=== PATIENT | female | born 1985 | race Two or more races ===

== ENCOUNTER 2016-10-07 16:04 | Emergency (ER) | payer MEDICAID ==
[~2016-10-07] VITALS: Ht 157.5 cm; Wt 68.9 kg
[2016-10-07 16:09] VITALS: BP 111/72
== END 2016-10-07 17:15 | disposition home or self-care (01) ==
LOC: ER 16:06
DX: H66.92 Otitis media, unspecified, left ear (principal)

== ENCOUNTER 2018-11-02 09:34 | Emergency (ER) | payer MEDICAID ==
[~2018-11-02] VITALS: Ht 157.5 cm; Wt 79.4 kg
[2018-11-02 10:12] VITALS: BP 113/73
[2018-11-02] MEDS ORDERED: diphenhdrAMINE HCL 50 MG/1 ML VL IM ONE (11:00)
== END 2018-11-02 11:57 | disposition home or self-care (01) ==
LOC: ER 09:34
DX: F41.1 Generalized anxiety disorder (principal)
CPT/HCPCS: 71046; 93005; 96372; 99284; J1200